=== PATIENT | female | born 1955 | race Caucasian/White ===

== ENCOUNTER → 2025-05-04 | Outpatient (CLI) | payer MEDICARE, SELFPAY ==
[2025-05-04 18:25] LABS: Ferritin 54 ng/mL (22-378)
== END | disposition home or self-care (01) ==
PROVIDERS: PCP Physician Assistant; Referring Provider Physician Assistant; Visit Provider Physician Assistant
DX: L65.9 Nonscarring hair loss, unspecified (principal); G20.A1 Parkinson's disease without dyskinesia, without mention of fluctuations; F43.0 Acute stress reaction; L63.8 Other alopecia areata; R03.0 Elevated blood-pressure reading, without diagnosis of hypertension
CPT/HCPCS: 36415; 82728; 86038; 86376